=== PATIENT | female | born 1950 | race Caucasian/White ===

== ENCOUNTER 2019-06-23 16:49 | Observation (INO) | payer MEDICARE, BC ==
[2019-06-23 17:16] LABS: #Eosinphils 0.2 thou/uL (0.0-0.7); #Lymphocytes 1.9 thou/uL (1.20-3.40); #Monocytes 0.7 thou/uL (0.11-0.59); #Neutrophils 4.6 thou/uL (1.40-6.50); %Basophils 0.6 % (0.0-1.0); %Lymphocytes 25.3 % (21.0-51.0); %Monocytes 9.6 % (0.0-10.0); %Neutrophils 61.5 % (42.0-75.0); Hemoglobin 14.6 g/dL (12.0-16.0); Mean Corpuscular HGB CONC 34.4 g/dL (32.0-36.0); Mean Corpuscular Hemoglobin 30.3 pg (27.0-31.0); Mean Corpuscular Volume 88.1 fL (78.0-98.0); Mean Platelet Volume 7.3 fL (7.4-10.4); Platelet Count 212 thou/uL (130-400); RBC Distribution Width 11.6 % (11.5-14.5); Red Blood Cell (RBC) Count 4.82 mill/uL (4.20-5.40); White Blood Cell (WBC) Count 7.6 thou/uL (4.8-10.8)
[2019-06-23] MEDS ORDERED: Nitroglycerin 2% Ointment 1 INCH/1 GM Packet ONE (17:20)
[2019-06-23] MEDS ORDERED: Aspirin Chewable 81 MG TAB ONE (17:21)
[2019-06-23] MEDS ORDERED: Nitroglycerin 0.4 MG TAB (25 Tab Bottle) ONE (17:21)
--- NOTE | 2019-06-23 17:29 | RAD ---
XR Chest 1 View Portable HISTORY: Chest pain COMPARISON: None. FINDINGS: Heart size is within normal limits. There are atherosclerotic changes of the aorta. The moiz gs are clear of infiltrative process. IMPRESSION: No active intrathoracic disease.
[2019-06-23 17:33] LABS: ALT (SGPT) 13 U/L (8-55); AST (SGOT) 17 U/L (5-34); Albumin 4.7 g/dL (3.4-4.8); Alkaline Phosphatase 69 U/L (40-150); Anion Gap 16 mmol/L (10-20); BUN (Urea Nitrogen) 19 mg/dL (9.8-20.1); Bilirubin, Total 0.5 mg/dL (0.2-1.2); CK (CPK) 69 U/L (29-168); Calc. Creatinine Clearance 0 mL/min (70-130); Calcium 9.9 mg/dL (7.8-10.44); Carbon Dioxide 26 mmol/L (23-31); Chloride 104 mmol/L (98-107); Estimated GFR-MDRD 40; Globulin 3.5 g/dL (2.4-3.5); Glucose 90 mg/dL (80-115); Potassium 4.1 mmol/L (3.5-5.1); Protein, Total 8.2 g/dL (6.0-8.3); Sodium 142 mmol/L (136-145)
[2019-06-23 20:24] LABS: Troponin I Less than 0.010 ng/mL (< 0.028)
[2019-06-23] MEDS ORDERED: Ondansetron PF 4 MG/2 ML Vial IVP PRN (20:50)
[2019-06-23] MEDS ORDERED: Acetaminophen 325 MG TAB PO PRN (20:50)
[2019-06-23] MEDS ORDERED: Ondansetron ODT 4 MG TAB SL PRN (20:50)
[2019-06-23] MEDS ORDERED: Sodium Chloride 0.9% 500 ML IV SCH (20:50)
[2019-06-23 21:27] VITALS: BMI 23.3
[2019-06-23 23:50] LABS: Troponin I Less than 0.010 ng/mL (< 0.028)
[2019-06-24] MEDS: Nitroglycerin 2% Ointment 1 INCH/1 GM Packet TOP SCH ×2 (01:50→06:36)
[2019-06-24] MEDS ORDERED: Sodium Chloride 0.9% 1,000 ML IV SCH (08:15)
[2019-06-24 08:57] LABS: #Eosinphils 0.2 thou/uL (0.0-0.7); #Lymphocytes 1.4 thou/uL (1.20-3.40); #Monocytes 0.6 thou/uL (0.11-0.59); #Neutrophils 2.9 thou/uL (1.40-6.50); %Basophils 0.3 % (0.0-1.0); %Eosinophils 3.8 % (0.0-10.0); %Lymphocytes 27.2 % (21.0-51.0); %Monocytes 11.9 % (0.0-10.0); %Neutrophils 56.8 % (42.0-75.0); Hemoglobin 12.8 g/dL (12.0-16.0); Mean Corpuscular HGB CONC 35.3 g/dL (32.0-36.0); Mean Corpuscular Volume 87.7 fL (78.0-98.0); Mean Platelet Volume 7.8 fL (7.4-10.4); Platelet Count 179 thou/uL (130-400); RBC Distribution Width 11.6 % (11.5-14.5); Red Blood Cell (RBC) Count 4.12 mill/uL (4.20-5.40); White Blood Cell (WBC) Count 5.2 thou/uL (4.8-10.8)
[2019-06-24] MEDS ORDERED: CARIPRAZINE HCL 6 MG PO SCH (09:00)
[2019-06-24] MEDS ORDERED: Famotidine 20 MG TAB PO SCH (09:00)
[2019-06-24 09:20] LABS: ALT (SGPT) Less than 7 U/L (8-55); AST (SGOT) 13 U/L (5-34); Albumin 4.1 g/dL (3.4-4.8); Alkaline Phosphatase 60 U/L (40-150); Anion Gap 10 mmol/L (10-20); BUN (Urea Nitrogen) 19 mg/dL (9.8-20.1); Bilirubin, Total 0.5 mg/dL (0.2-1.2); Calc. Creatinine Clearance 53 mL/min (70-130); Calcium 9.8 mg/dL (7.8-10.44); Carbon Dioxide 27 mmol/L (23-31); Chloride 108 mmol/L (98-107); Cholesterol 195 mg/dl (< 200 Desired); Estimated GFR-MDRD 48; Globulin 2.6 g/dL (2.4-3.5); Glucose 89 mg/dL (80-115); HDL Cholesterol 28 mg/dL (>60 Neg Risk); LDL Cholesterol, Calculated 92 mg/dL; Potassium 4.4 mmol/L (3.5-5.1); Protein, Total 6.7 g/dL (6.0-8.3); Sodium 141 mmol/L (136-145); Triglycerides 374 mg/dL (Less than 150)
[2019-06-24] MEDS ORDERED: Bupropion 150 MG XL TAB PO SCH (09:30)
[2019-06-24] MEDS: Venlafaxine HCl XR 150 MG CAP PO SCH ×2 (12:55→12:58)
--- NOTE | 2019-06-24 13:00 | NM ---
EXAM: CARDIAC SPECT HISTORY: Chest pain, hypertension, dyspnea TECHNIQUE: A myocardial perfusion scan was performed using the single isotope 1 day protocol with eliu hnetium 99m sestamibi. [10 mCi] was injected intravenously for the rest exam followed by 30 mCi for the stress study. Exercise stress was monitored and interpreted by Dr. Chatterjee FINDINGS: Homogeneous tracer distribution is seen in the myocardial segments on stress and rest image s without fixed or reversible defects. Gated SPECT LVEF: 81% Wall motion exam: Normal IMPRESSION: Normal myocardial perfusion scan
[2019-06-24 14:05] VITALS: BP 137/66; TEMP 97.5
[2019-06-24] MEDS ORDERED: Prevnar 13-Val Conj/PF 0.5 ML SYRINGE IM ONE (21:00)
--- NOTE | 2019-06-25 04:29 | SS ---
DATE OF ADMISSION: 06/23/2019 DATE OF DISCHARGE: 06/24/2019 PRIMARY CARE PHYSICIAN: Dr. Giron. PROCEDURES: 1. The patient had a chest x-ray which showed no active intrathoracic disease. 2. Had a stress test with nuclear medicine which showed an EF of 81%. Wall motion was normal. Showed a normal myocardial perfusion scan. HOSPITAL SUMMARY: Ms. Ann is a 68-year-old female, who reported to the emergency room yesterday for evaluation of chest pain, high blood pressure. Reports that the symptoms were most severe in the upper left chest, described as throbbing. When she got to the emergency room yesterday, she was found to have a blood pressure of 205/101. The patient does not have a history of hypertension. She was given some nitroglycerin sublingual and 1 inch of nitroglycerin paste which brought her pressure down to 145/87 prior to being admitted to the observation unit. EKG in the emergency room showed nonspecific T-wave changes. [place] is normal. T-waves were normal. The patient reports that chest pain has since resolved. Reports that she did have a mild headache after the nitroglycerin. She went for a nuclear stress test today which was normal findings as above. Her initial creatinine was 1.33. This morning, it was 1.12. Triglycerides were 374. Troponin x3 undetectable. TSH was 1.42. Vital signs; the patient's blood pressure has remained with systolic blood pressure This morning, it was 107/56. Prior to discharge, it was 137/66. On discussion with the patient and her , the patient was started on a new medication Vraylar about a month ago for her bipolar disorder, and one of the side effects, which is rare that was reported as hypertension. Discussion was had with the patient and regarding discussion with Dr. Giron, her PCP about either changing the medication or taking it at a different time. Her blood pressure has remained within normal range today and she did not have her dose of this medication this morning as she normally does. Labs and vital signs have remained stable. Stress test was negative. The patient was subsequently sent home. ALLERGIES: TO MORPHINE, SHELLFISH. MEDICATIONS: Continued medications on discharge; 1. Wellbutrin 300 mg p.o. daily. 2. Vraylar 6 mg p.o. daily. 3. Seroquel 300 mg p.o. at bedtime. 4. Effexor 150 mg p.o. daily. We did add on this some clonidine 0.1 p.o. b.i.d. p.r.n. with instructions to take if systolic blood pressure over 170. DISPOSITION: Home. DISPOSITION CONDITION: Stable. FOLLOWUP INSTRUCTIONS: The patient to follow up with Dr. Giron within the next week. She has been instructed to take her blood pressure at home twice a day once when she 1st gets up and next mid afternoon. Write these numbers down and take them with her to followup appointment. We did prescribe some clonidine 0.1 mg that she can take if her systolic blood pressure is over 170. When she takes it, but instructed not to take it more than twice a day and take this log with her to her PCPs office to talk about possible reaction to Vraylar or if her blood pressure runs consistently high, to start her on some blood pressure medication. The patient was resistant to start anything everyday. She did not want to take any more medications than she had to. Job ID: [id number]
[2019-06-25] MEDS ORDERED: Venlafaxine HCl XR 150 MG CAP PO SCH (09:00)
[2019-06-25] MEDS ORDERED: CARIPRAZINE HCL 6 MG PO SCH ×2 (09:00)
[2019-06-25] MEDS ORDERED: Bupropion 150 MG XL TAB PO SCH (09:00)
--- NOTE | 2019-06-28 14:42 | EKG ---
Test Reason : Blood Pressure : / mmHG Vent. Rate : 081 BPM Atrial Rate : 081 BPM P-R Int : 162 ms QRS Dur : 086 ms QT Int : 372 ms P-R-T Axes : 064 034 040 degrees QTc Int : 432 ms Normal sinus rhythm Nonspecific ST and T wave abnormality Abnormal ECG Confirmed by MARIBEL THAO, JANES Berumen ([id number]), photo editor JL RUSH ([id number]) on 06/28/2019 2:42:18 PM Referred By: Confirmed By:JANES LÓPEZ MD
== END 2019-06-24 14:49 | disposition home or self-care (01) ==
LOC: SCSER 16:49 → ERHOLD 18:45 → 2SW 21:14
PROVIDERS: ADMIT Family Medicine; ATTEND Family Medicine
DX: R07.9 Chest pain, unspecified (principal); I16.1 Hypertensive emergency; F31.9 Bipolar disorder, unspecified; Z91.013 Allergy to seafood; Z88.5 Allergy status to narcotic agent; Z79.899 Other long term (current) drug therapy
CPT/HCPCS: 71045; 78452; 80053; 80061; 82550; 83880; 84484 ×2; 85025; 93005; 93017; 99285; A9500; G0378 ×3; 36415; 84443

== ENCOUNTER 2019-06-27 18:03 | Emergency (ER) | payer MEDICARE, BC ==
[2019-06-27 19:27] LABS: #Basophils 0.1 thou/uL (0.0-0.2); #Eosinphils 0.2 thou/uL (0.0-0.7); #Lymphocytes 1.7 thou/uL (1.20-3.40); #Monocytes 0.6 thou/uL (0.11-0.59); #Neutrophils 3.6 thou/uL (1.40-6.50); %Basophils 0.8 % (0.0-1.0); %Eosinophils 3.9 % (0.0-10.0); %Lymphocytes 27.8 % (21.0-51.0); %Monocytes 9.8 % (0.0-10.0); %Neutrophils 57.7 % (42.0-75.0); Hemoglobin 12.7 g/dL (12.0-16.0); Mean Corpuscular HGB CONC 35.3 g/dL (32.0-36.0); Mean Corpuscular Hemoglobin 31.5 pg (27.0-31.0); Mean Corpuscular Volume 89.2 fL (78.0-98.0); Mean Platelet Volume 7.8 fL (7.4-10.4); Platelet Count 196 thou/uL (130-400); RBC Distribution Width 11.8 % (11.5-14.5); Red Blood Cell (RBC) Count 4.02 mill/uL (4.20-5.40); White Blood Cell (WBC) Count 6.2 thou/uL (4.8-10.8)
== END 2019-06-27 19:44 | disposition home or self-care (01) ==
LOC: SCSER 18:03
DX: L03.113 Cellulitis of right upper limb (principal); F31.9 Bipolar disorder, unspecified; Z79.899 Other long term (current) drug therapy
CPT/HCPCS: 85025; 99283

== ENCOUNTER 2019-11-12 22:58 | Emergency (ER) | payer MEDICARE, BC ==
[2019-11-12] MEDS ORDERED: hydrALAZINE 20 MG/ML VIAL ONE (23:27)
--- NOTE | 2019-11-12 23:29 | CT ---
Exam: CT brain PROVIDED CLINICAL HISTORY: Headache COMPARISON: None FINDINGS: The ventricular system is normal in size and morphology. No evidence for intracranial hemorrhage or mass effect. The extracranial soft tissues and osseous structures demonstrate no evidence for an acute abnormality. IMPRESSION: No evidence for intracranial hemorrhage or mass effect.
[2019-11-12 23:33] LABS: #Eosinphils 0.3 thou/uL (0.0-0.7); #Lymphocytes 2.1 thou/uL (1.20-3.40); #Monocytes 0.6 thou/uL (0.11-0.59); #Neutrophils 3.9 thou/uL (1.40-6.50); %Basophils 0.5 % (0.0-1.0); %Monocytes 8.7 % (0.0-10.0); %Neutrophils 56.7 % (42.0-75.0); Mean Corpuscular HGB CONC 35.3 g/dL (32.0-36.0); Mean Corpuscular Hemoglobin 30.4 pg (27.0-31.0); Mean Corpuscular Volume 86.1 fL (78.0-98.0); Mean Platelet Volume 7.9 fL (7.4-10.4); Platelet Count 218 thou/uL (130-400); RBC Distribution Width 11.5 % (11.5-14.5); Red Blood Cell (RBC) Count 4.63 mill/uL (4.20-5.40); White Blood Cell (WBC) Count 6.9 thou/uL (4.8-10.8)
[2019-11-12 23:44] LABS: INR-International Normal Ratio 0.9; PTT 26.7 SEC (22.9-36.1); Prothrombin Time 11.8 SEC (12.0-14.7)
[2019-11-12 23:57] LABS: ALT (SGPT) 15 U/L (8-55); AST (SGOT) 17 U/L (5-34); Albumin 4.4 g/dL (3.4-4.8); Alkaline Phosphatase 66 U/L (40-110); Anion Gap 15 mmol/L (10-20); BUN (Urea Nitrogen) 19 mg/dL (9.8-20.1); Bilirubin, Total 0.5 mg/dL (0.2-1.2); Calc. Creatinine Clearance 0 mL/min (70-130); Calcium 9.4 mg/dL (7.8-10.44); Carbon Dioxide 27 mmol/L (23-31); Chloride 102 mmol/L (98-107); Estimated GFR-MDRD 50; Globulin 3.2 g/dL (2.4-3.5); Glucose 104 mg/dL (80-115); Potassium 3.8 mmol/L (3.5-5.1); Protein, Total 7.6 g/dL (6.0-8.3); Sodium 140 mmol/L (136-145)
[2019-11-13 00:19] LABS: Clarity Clear (Clear); Leukocyte 250 Leu/uL (Negative); Nitrite Negative (Negative); Protein, Urine (Dipstick) Negative (Neg-Trace)
[2019-11-13 00:20] LABS: Bacteria/HPF None Seen HPF (None Seen); Bilirubin Negative (Negative); Blood, Urine Negative (Negative); Glucose, Urine (Dipstick) Normal (Negative); RBC/HPF 0-3 HPF (0-3); Squamous Epithelial 0-3 HPF (0-3); Urobilinogen Normal mg/dL (Less than 2)
== END 2019-11-13 00:35 | disposition home or self-care (01) ==
LOC: ERS 22:58
DX: I10 Essential (primary) hypertension (principal); R51 Headache; F31.9 Bipolar disorder, unspecified; Z79.899 Other long term (current) drug therapy
CPT/HCPCS: 70450; 80053; 81003; 81015; 83735; 83880; 84484; 85025; 85610; 85730; 93005; 96361; 96374; J0360

== ENCOUNTER 2019-11-21 09:44 | Outpatient (CLI) | payer MEDICARE, BC ==
--- NOTE | 2019-11-25 08:49 | EEG ---
Referring Physician: Swapna AMIN EEG # [id number] TEST TYPE: ROUTINE OUTPATIENT REPORT: AN EEG USING THE [employer]NATIONAL TEN-TWENTY SYSTEM OF ELECTRODE PLACEMENT WAS PERFORMED. The background activity shows some diffuse slowing with a predominance of higher amplitude slowing seen over the right hemisphere. There is some occasional 8 hertz alpha activity. Photic stimulation was unremarkable. The patient appeared to be awake throughout the study. IMPRESSION: THIS IS AN ABNORMAL STUDY FOR THE FINDINGS OF DIFFUSE SLOWING WITH HIGHER AMPLITUDE SLOWING OVER THE RIGHT HEMISPHERE LIKELY SECONDARY TO AN UNDERLYING STRUCTURAL ISSUE. CLINICAL CORRELATION IS INDICATED. Investigations Director:SARAH Straightedge Machine Operator Helper: EEG.ERIK CASTAÑEDA
== END 2019-11-21 09:45 | disposition home or self-care (01) ==
LOC: EEG 09:44
PROVIDERS: ATTEND Psychiatry & Neurology Psychiatry
DX: R56.9 Unspecified convulsions (principal)
CPT/HCPCS: 95816

== ENCOUNTER 2019-12-23 09:19 | Outpatient (CLI) | payer MEDICARE, BC ==
--- NOTE | 2019-12-23 10:41 | MRI ---
Exam: Brain MRI with and without contrast HISTORY: Abnormal EEG. COMPARISON: None FINDINGS: Gradient echo sequence: No hemorrhage Calvarium: Appropriate T1 marrow signal intensity Midline brain parenchyma: Unremarkable Cerebrum:No parenchymal mass, mass effect or midline shift. Brain volume, age-appropriate. Cortical g ray-white matter differentiation is preserved. Scattered T2 and FLAIR white matter hyperintensities due to chronic small vessel ischemic change Ventricles: No evidence of hydrocephalus. Sinuses and mastoid air cells: Adequate aeration Diffusion: Central arterial flow is maintained. Absent restricted diffusion. Postcontrast images: No pathologic enhancement of the brain parenchyma. IMPRESSION: 1. No acute intracranial process. 2. Minimal chronic small vessel ischemic changes white matter. 3. No pathologic enhancement the brain parenchyma. 4. Absent restricted diffusion. No evidence of an acute infarct
== END 2019-12-23 09:20 | disposition home or self-care (01) ==
LOC: SCSMRI 09:19
PROVIDERS: ATTEND Psychiatry & Neurology Neurology
DX: R94.01 Abnormal electroencephalogram [EEG] (principal); G93.89 Other specified disorders of brain
CPT/HCPCS: 70553; 82565

== ENCOUNTER 2020-04-06 13:06 | Outpatient (CLI) | payer MEDICARE, BC ==
--- NOTE | 2020-04-06 14:37 | RAD ---
Exam: 2 views lumbar spine HISTORY: Pain. Injury. FINDINGS: 5 lumbar type vertebra. Lumbar spine vertebral body height is maintained. No fracture. Vacu um disc phenomenon and lumbosacral junction. No spondylolisthesis or spondylolysis. Visualized bony pelvis and sacrum appear to be intact IMPRESSION: Severe degenerative change lumbosacral junction.
--- NOTE | 2020-04-06 16:02 | ULT ---
COMPLETE ABDOMEN ULTRASOUND: 04/06/20 INDICATIONS: History of right sided flank pain. COMPARISON: Prior CT of the abdomen dated 07/01/09 from [facility]. FINDINGS: There are numerous cysts within the liver. The largest is seen in the left hepatic lobe measuring 2 x 1.7 x 1.4 cm. The visualized aspects of the aorta and IVC are within normal limits. The visualized aspects of the gallbladder are within normal limits. No sonographic Jacobs's sign is reported. Common bile duct measures 0.78 cm which is slightly prominent for age. The visualized aspects of the pancreas are unremarkable appearing. The right kidney measured 10.8 x 4.8 x 4.3 cm. Left kidney measures 10.9 x 5.3 x 4.6 cm. Spleen measures 10.8 cm. There are numerous calcified granuloma in the spleen. IMPRESSION: 1. Hepatic cysts. 2. No definite sonographic explanation of the patient's right sided flank pain. No hydronephrosi s is demonstrated. The common bile duct measures 0.78 cm which is upper limits of normal for the kisha ent's age. If patient remains symptomatic, further evaluation with CT of the abdomen with IV enteric contrast may be helpful for further characterization. POS: [facility]
--- NOTE | 2020-04-06 16:34 | RAD ---
EXAM: SKULL FOUR VIEWS: 04/06/20 HISTORY: Pain, fall, injury. Pain left side of head. FINDINGS: Four views of the skull demonstrates no evidence for overt skull fracture. No evidence for skull bone lesion. Sella turcica is unremarkable. Visualized space appears intact. IMPRESSION: Unremarkable four views skull. If there is clinical concern for intracranial injury, follow-up CT scan is recommended. POS: [facility]
== END 2020-04-06 13:07 | disposition home or self-care (01) ==
LOC: BICRAD 13:06
PROVIDERS: ATTEND Internal Medicine
DX: M54.5 Low back pain (principal); R51 Headache; M47.817 Spondylosis without myelopathy or radiculopathy, lumbosacral region; K76.89 Other specified diseases of liver; W19.XXXA Unspecified fall, initial encounter; E78.5 Hyperlipidemia, unspecified; M54.9 Dorsalgia, unspecified; F32.9 Major depressive disorder, single episode, unspecified; I10 Essential (primary) hypertension
CPT/HCPCS: 36415; 70260; 72100; 80053; 85025; 85652; 86140; 93975

== ENCOUNTER 2020-04-28 10:27 | Outpatient (CLI) | payer MEDICARE, BC ==
--- NOTE | 2020-04-28 13:30 | CT ---
CT ABDOMEN WITH CONTRAST CT PELVIS WITH CONTRAST: DATE: 04/28/2020 HISTORY: 69-year-old female with malignant hypertension presents with back pain. Rule out abdominal aortic dis section or rupture. COMPARISON: CT abdomen with contrast 07/09/2009 CT abdomen and pelvis, noncontrast 06/09/2009 TECHNIQUE: IV injection of iodinated contrast media: administered. Oral contrast media:Administered FINDINGS: Again noted are the multiple hepatic cysts. Largest one is approximately 2.2 cm in hepatic segment 2. No interval change in the liver since 07/09/2009. No solid hepatic mass. No portal vein thrombosis. Pancreas, adrenals, kidneys, and urinary bladder. Previously, the cecum was deep in the pelvic cavity to the left of midline. Currently, it is high in the left upper quadrant of the abdomen. The corresponding right paramedian p osition of the appendix shows a normal appendix. No small bowel dilation. Atherosclerotic calcification throughout the abdominal aorta without aneurys m, dissection, or rupture. No retroperitoneal lymphadenopathy. Sigmoid colonic diverticulosis without diverticulitis. No ascites, pneumoperitoneum, or small bowel dilation. Lung bases are grossly clear. Lower thoracic and all lumbar vertebral body heights are maintained. High-grade disc space narrowing with vacuum disc phenomenon at L5-S1. No spondylolysis or spondylolisthesis. IMPRESSION: 1) no acute findings. 2) atherosclerosis without aneurysm, dissection, or rupture, of abdominal aorta. 3) degenerative disc disease at L5-S1. 4) multiple hepatic cysts, unchanged
== END 2020-04-28 10:28 | disposition home or self-care (01) ==
LOC: SCSCT 10:27
PROVIDERS: ATTEND Internal Medicine
DX: M54.9 Dorsalgia, unspecified (principal); I10 Essential (primary) hypertension; I70.0 Atherosclerosis of aorta; M51.37 Other intervertebral disc degeneration, lumbosacral region; K76.89 Other specified diseases of liver
CPT/HCPCS: 74177

== ENCOUNTER 2020-05-07 07:46 | Outpatient (CLI) | payer MEDICARE, BC ==
--- NOTE | 2020-05-07 09:06 | MRI ---
MRI lumbar spine noncontrast: HISTORY: Low back pain COMPARISON: 06/12/2009 FINDINGS: Appropriate T1 marrow signal intensity of the lumbar vertebra. Lumbar spine vertebral body height is maintained. No fracture. No spondylolisthesis or spondylolysis. No significant STIR hyperintensity to suggest ligamentous injury or vertebral body edema Appropriate signal intensity of the visualized paraspinal muscles. Bilateral parapelvic cysts. Conus medullaris terminates at the upper aspect of L1 T12-L1:Adequate disc hydration. No significant central canal stenosis or significant neural foraminal narrowing L1-L2:Adequate disc hydration. No significant central canal stenosis or significant neural foraminal narrowing L2-L3:Adequate disc hydration. No significant central canal stenosis or significant neural foraminal narrowing L3-L4:Adequate disc hydration. Minimal left and right paracentral disc bulges. No significant central canal stenosis or significant neural foraminal narrowing. L4-L5:Disc desiccation with mild loss of disc space height. Broad-based disc bulge, ligamentum flavum thickening and facet hypertrophy do not cause any significant stenosis of the thecal sac. Right greater than left encroachment upon the subarticular zone. Contact upon both traversing L5 nerve root s. Mild to moderate bilateral foraminal narrowing due to disc material L5-S1:Desiccation with moderate loss of disc space height. Broad-based disc bulge abuts the thecal sa c. Encroachment upon both subarticular zones. Contact upon both traversing S1 nerve roots without significant mass effect or obscuration. Moderate to severe bilateral neural foraminal narrowing IMPRESSION: 1. Narrowing of subarticular zones at L4-L5 and L5-S1 as detailed above. Contact upon bilateral trave rsing L5 and S1 nerve roots. 2. Moderate to severe bilateral foraminal narrowing at L5-S1.
== END 2020-05-07 07:47 | disposition home or self-care (01) ==
LOC: TBSIIMAG 07:46
PROVIDERS: ATTEND Internal Medicine
DX: M54.5 Low back pain (principal); M48.07 Spinal stenosis, lumbosacral region; M48.061 Spinal stenosis, lumbar region without neurogenic claudication; G54.8 Other nerve root and plexus disorders
CPT/HCPCS: 72148

== ENCOUNTER 2020-11-30 08:09 | Outpatient (CLI) | payer MEDICARE, BC ==
--- NOTE | 2020-11-30 08:37 | RAD ---
2 view chest: [11/30/2020] Comparison:04/12/2020 and 06/08/2009 HISTORY: Cough FINDINGS: No pneumothorax or pleural fluid is noted. There is no focal consolidation or alveolar maynor a. Heart and mediastinal contours are stable. There has been no interval change when compared to a 2 view examination of the chest performed 009. IMPRESSION: No acute findings.
--- NOTE | 2020-11-30 08:41 | RAD ---
3 views paranasal sinuses: 11/30/2020 COMPARISON: None HISTORY: Cough with sinusitis FINDINGS: The frontal sinuses, maxillary sinuses, sphenoid sinuses, and ethmoid air cells appear well -aerated. No paranasal sinus opacification is evident on this exam. IMPRESSION: Unremarkable radiographs of the paranasal sinuses. If cough persists a CT examination of the chest may be beneficial.
== END 2020-11-30 08:10 | disposition home or self-care (01) ==
LOC: BICRAD 08:09
PROVIDERS: ATTEND Internal Medicine
DX: J32.9 Chronic sinusitis, unspecified (principal); R05 Cough
CPT/HCPCS: 70220; 71046

== ENCOUNTER 2023-12-18 11:32 | Outpatient (CLI) | payer MEDICARE, BC | END 2023-12-18 11:33 | disposition home or self-care (01) | LOC: SCSMRI 11:32 | PROVIDERS: ATTEND Nurse Practitioner Family | DX: M47.26 Other spondylosis with radiculopathy, lumbar region (principal); M47.817 Spondylosis without myelopathy or radiculopathy, lumbosacral region; M51.14 Intervertebral disc disorders with radiculopathy, thoracic region | CPT/HCPCS: 72146; 72148 ==

== ENCOUNTER 2025-07-27 12:14 | Outpatient (CLI) | payer MEDICARE, BC | END 2025-07-27 12:15 | disposition home or self-care (01) | LOC: BICMAMMO 12:14 | PROVIDERS: ATTEND Nurse Practitioner | DX: Z78.0 Asymptomatic menopausal state (principal); M81.0 Age-related osteoporosis without current pathological fracture | CPT/HCPCS: 77080 ==